=== PATIENT | female | born 1995 | race Two or more races ===

== ENCOUNTER 2018-12-28 15:30 | Emergency (ER) | payer MEDICAID, OTHER ==
[~2018-12-28] VITALS: Ht 157.5 cm; Wt 63.5 kg
[2018-12-28] MEDS ORDERED: SODIUM CHLORIDE 0.9% 1,000 ML IV ONE ×2 (15:37)
[2018-12-28 16:22] LABS: Salicylate < 1.7 mg/dL (2.8-20.0)
[2018-12-28 16:23] LABS: Acetaminophen < 2.0 ug/mL (10-30)
[2018-12-28 16:24] LABS: Albumin 3.6 g/dL (3.4-5.0); Potassium 3.5 mmol/L (3.5-5.1)
[2018-12-28 16:25] LABS: Basophils # (auto) 0 uL; Basophils % (auto) 0.5 % (0.0-2.0); Eosinophils # (auto) 0 uL; Eosinophils % (auto) 0.2 % (0.0-7.0); Hematocrit 41.1 % (36.0-46.0); Hemoglobin 13.4 g/dL (12.2-16.2); Lymphocytes % (auto) 18.9 % (10.0-50.0); Mean Corpuscular Hemoglobin 28.9 pg (28.0-32.0); Mean Corpuscular Hgb Conc. 32.7 g/dL (32.0-36.0); Mean Corpuscular Volume 88.3 fL (80.0-100.0); Monocytes # (auto) 0.8 uL; Monocytes % (auto) 7.4 % (0.0-12.0); Neutrophils # (auto) 7.7 uL; Nucleated Red Blood Cells % 0.1 %; Platelet Count (auto) 365 10^3/uL (140-450); Red Blood Cells 4.66 10^6/uL (4.0-5.20); Red Cell Distribution Width 16.1 % (11.8-14.3); White Blood Cell 10.5 10^3/uL (4.4-10.8)
[2018-12-28 16:26] LABS: BUN/Creatinine Ratio 10.5; Bilirubin, Total 0.5 mg/dL (0.2-1.0); Total Protein 7.2 g/dL (6.4-8.2)
[2018-12-28 19:04] LABS: Urine Bacteria NONE SEEN /hpf (None Seen); Urine Blood Negative /uL (Negative); Urine Mucus FEW (None Seen); Urine Specific Gravity 1.023 (1.001-1.035); Urine WBC 3 /hpf (0 - 5)
[2018-12-28 19:06] LABS: Amphetamine Screen, Urine NEGATIVE (NEGATIVE); Barbiturate Scree,Urine NEGATIVE (NEGATIVE); Benzodiazephine Screen, Urine NEGATIVE (NEGATIVE); Cannabinoid Screen, Urine NEGATIVE (NEGATIVE); Cocaine Screen, Urine NEGATIVE (NEGATIVE); Opiate Scree,Urine NEGATIVE (NEGATIVE); Phencyclidine Screen, Urine NEGATIVE (NEGATIVE)
[2018-12-28 20:11] VITALS: BP 131/71
== END 2018-12-28 21:18 | disposition left against medical advice (07) ==
LOC: EDBD 15:30 → ER 15:38
DX: F32.9 Major depressive disorder, single episode, unspecified (principal); Z53.29 Procedure and treatment not carried out because of patient's decision for other reasons
CPT/HCPCS: 36415; 80053; 80307; 80320; 80329; 81001; 82962; 84702; 85025; 93005; 96360; 99284; J7030

== ENCOUNTER 2025-01-26 21:57 | Inpatient (IN) | payer MEDICAID ==
[~2025-01-26] VITALS: Ht 157.5 cm; Wt 68.0 kg
[2025-01-26] MEDS: LORazepam 2MG/ML-1ML VIAL IV ONE (22:59)
[2025-01-26 23:06] LABS: Hematocrit 39.8 % (36.0-46.0); Hemoglobin 13.3 g/dL (12.2-16.2); Mean Corpuscular Hemoglobin 27.9 pg (28.0-32.0); Mean Corpuscular Volume 83.8 fL (80.0-100.0); Nucleated Red Blood Cells % 0.1 %
[2025-01-26 23:17] LABS: Anion Gap 11 (5-15); Carbon Dioxide 24 mmol/L (20-31); Potassium 3.6 mmol/L (3.5-5.1); Sodium 144 mmol/L (136-145)
[2025-01-26 23:18] LABS: Calcium 8.9 mg/dL (8.7-10.4)
[2025-01-26 23:23] LABS: BUN/Creatinine Ratio 14.1 (10.0-20.0); Blood Urea Nitrogen 9 mg/dL (9-23); Glucose 95 mg/dL (74-106)
[2025-01-26 23:34] LABS: Chloride 109 mmol/L (98-107)
[2025-01-27] VITALS (7 sets, daily range): BP systolic 85–105; BP diastolic 47–72; PULSE 80–96; RESP 15–21; TEMP 98.1–98.5; O2SAT 95–99
--- NOTE | 2025-01-27 00:30 | ED.PDOC ---
History of Present Illness HPI Comments 29-year-old female complaining of anxiety and shakiness, patient reports heavy drinker typically drinking two bottles of wine daily. States she has had a history of alcohol withdrawal. States last drink was earlier this morning. She feels as though she is going through withdrawals again. Patient states last week she was admitted to [facility] and [facility]. States she stayed for one week. Says one of the doctors [place] recently prescribed her Ativan 1 mg and [place] five. States she has been taking those for her anxiety her withdrawals and body pains. States she recently ran out three days ago so she started to drink again. Chief Complaint: Withdrawal Time Seen by MD: 22:21 Primary Care Provider: UNK Reviewed Notes: Nurses Notes Allergies: Coded Allergies: NO KNOWN ALLERGIES (Unverified , 12/28/18) Information Source: Patient Mode of Arrival: Ambulatory Past Medical History PAST MEDICAL HISTORY: Anxiety Past Medical History (Other): Alcohol dependency, chronic right shoulder pain Surgical History: Denies all surgeries HOOP ROLLS OPERATOR History: No Pertinent HOOP ROLLS OPERATOR History Family History Family History: Unknown Social History Smoker: Non-Smoker Alcohol: Denies ETOH Use Drugs: Denies Drug Use Constitutional: reports: chills, malaise; denies: diaphoresis, fatigue, fever, sweats, weakness, others EENTM: denies: blurred vision, double vision, ear bleeding, ear discharge, ear drainage, ear pain, ear ringing, eye pain, eye redness, hearing loss, mouth pain, mouth swelling, nasal discharge, nose bleeding, nose congestion, nose pain, photophobia, tearing, throat pain, throat swelling, voice changes, others Respiratory: denies: cough, hemoptysis, orthopnea, SOB at rest, shortness of breath, SOB with excertion, stridor, wheezing, others Cardiovascular: reports: dizzy spells, diaphoresis; denies: chest pain, Dyspnea on exertion, edema, irregular heart beat, left arm pain, lightheadedness, palpitations, PND, syncope, others Gastrointestinal: reports: nausea; denies: abdomen distended, abdominal pain, blood streaked bowels, constipated, diarrhea, dysphagia, difficulty swallowing, hematemesis, melena, poor appetite, poor fluid intake, rectal bleeding, rectal pain, vomiting, others Genitourinary: denies: abnormal vagina bleeding, burning, dyspareunia, dysuria, flank pain, frequency, hematuria, incontinence, pain, , vagina discharge, urgency, others Neurological: denies: dizziness, fainting, headache, left sided numbness, left sided weakness, numbness, paresthesia, pre-existing deficit, right sided numbness, right sided weakness, seizure, speech problems, tingling, tremors, weakness, others Musculoskeletal: denies: back pain, gout, joint pain, joint swelling, muscle pain, muscle stiffness, neck pain, others Integumetry: denies: bruises, change in color, change in hair/nails, dryness, laceration, lesions, lumps, rash, wounds, others Allergic/Immunocompromised: denies: Difficulty Healing, Frequent Infections, Hives, Itching, others Hematologic/Lymphatic: denies: anemia, blood clots, easy bleeding, easy bruising, swollen glands, others Physical Exam General Appearance: No Apparent Distress, Normal HEENT: Normal ENT Inspection, Pharynx Normal, TMs Normal Neck: Full Range of Motion, Non-Tender, Normal, Normal Inspection Respiratory: Chest Non-Tender, Lungs Clear, No Accessory Muscle Use, No Respiratory Distress, Normal Breath Sounds Cardiovascular: No Edema, No JVD, No Murmur, No Gallop, Normal Peripheral Pulses, Regular Rate/Rhythm Breast Exam: Deferred Gastrointestinal: No Organomegaly, Non Tender, No Pulsatile Mass, Normal Bowel Sounds, Soft Genitalia: Deferred Pelvic: Deferred Rectal: Deferred Extremities: No calf tenderness, Normal capillary refill, Normal inspection, Normal range of motion, Non-tender, No pedal edema Musculoskeletal : Apperance: Normal Neurologic: Alert, 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 Was a procedure done?: No Differential Dx Considerations may include: Alcohol withdrawal, delirium tremors, benzodiazepine withdrawal, X-Ray, Labs, Meds, VS Vital Signs Date Time Temp Pulse Resp B/P (MAP) Pulse Ox O2 Delivery O2 Flow Rate FiO2 01/26/25 23:00 Room Air* 0 21 01/26/25 23:00 98.7 127 16 102/54 (70) 98 98.7 01/26/25 22:17 98.7 127 16 102/54 (70) 98 98.7 Lab Test 01/26/25 22:55 Range/Units White Blood Count 8.0 4.4-10.8 10^3/uL Red Blood Count 4.76 4.0-5.20 10^6/uL Hemoglobin 13.3 12.2-16.2 g/dL Hematocrit 39.8 36.0-46.0 % Mean Corpuscular Volume 83.8 80.0-100.0 fL Mean Corpuscular Hemoglobin 27.9 L 28.0-32.0 pg Mean Corpuscular Hemoglobin Concent 33.3 32.0-36.0 g/dL Red Cell Distribution Width 17.6 H 11.8-14.3 % Platelet Count 373 140-450 10^3/uL Mean Platelet Volume 7.2 6.9-10.8 fL Neutrophils (%) (Auto) 58.8 37.0-80.0 % Lymphocytes (%) (Auto) 31.8 10.0-50.0 % Monocytes (%) (Auto) 8.7 0.0-12.0 % Eosinophils (%) (Auto) 0.2 0.0-7.0 % Basophils (%) (Auto) 0.5 0.0-2.0 % Neutrophils # (Auto) 4.7 1.6-8.6 10 ^3/uL Lymphocytes # (Auto) 2.5 0.4-5.4 10 ^3/uL Monocytes # (Auto) 0.7 0-1.3 10 ^3/uL Eosinophils # (Auto) 0 0-0.8 10 ^3/uL Basophils # (Auto) 0 0-0.2 10 ^3/uL Nucleated Red Blood Cells 0.1 % Sodium Level 144 136-145 mmol/L Potassium Level 3.6 3.5-5.1 mmol/L Chloride Level 109 H 98-107 mmol/L Carbon Dioxide Level 24 20-31 mmol/L Anion Gap 11 5-15 Blood Urea Nitrogen 9 9-23 mg/dL Creatinine 0.64 0.550-1.02 mg/dL Glomerular Filtration Rate Calc 123 >90 mL/min BUN/Creatinine Ratio 14.1 10.0-20.0 Serum Glucose 95 74-106 mg/dL Calcium Level 8.9 8.7-10.4 mg/dL Plasma/Serum Blood Alcohol 103.6 H <10 mg/dL Current Medications Medications (Trade) Dose Ordered Sig/Yanet Route Start Time Stop Time Status Last Admin Lorazepam (Ativan Inj) 1 mg ONCE ONCE IV 01/26/25 22:45 01/26/25 22:46 DC 01/26/25 22:59 X-Ray, Labs, Meds, VS Comment Patient reports prior history of seizures due to withdrawal and hallucinations Patient will be admitted for alcohol withdrawal Patient will be started on banana bag Given 1 mg Ativan Patient be given morphine four Zofran four for her body pain. Time of 1ST Reevaluation: 00:30 Reevaluation 1ST: Unchanged Patient Education/Counseling: Diagnosis, Treatment Family Education/Counseling: Diagnosis SEPSIS Sepsis Screen Date sepsis recognized/suspect: Jan 26, 2025 Time Sepsis recognized/suspect: 2216 Recent Procedure: No On Antibiotic Therapy: No Respiratory Rate >20: No Heart Rate >90: Yes (HR-127) Temp<36 C (96.8 F) or >38.3 C: No SBP <90 or MAP <65 mmHG: No New Acute Mental Status Change: No Is the patient on CPAP, BIPAP,: No Physician Orders Drug Screen (01/26/25 22:40) Urinalysis (01/26/25 22:40) Vital Signs Date Time Temp Pulse Resp B/P (MAP) Pulse Ox O2 Delivery O2 Flow Rate FiO2 01/26/25 23:00 Room Air* 0 21 01/26/25 23:00 98.7 127 16 102/54 (70) 98 98.7 01/26/25 22:17 98.7 127 16 102/54 (70) 98 98.7 Laboratory Tests Test 01/26/25 22:55 White Blood Count 8.0 10^3/uL (4.4-10.8) Medications Medications Dose Ordered Sig/Yanet Route Start Time Stop Time Status Last Admin Dose Admin Lorazepam 1 mg ONCE ONCE IV 01/26/25 22:45 01/26/25 22:46 DC 01/26/25 22:59 Departure 1 Departure Time of Disposition: 00:27 Impression: Primary Impression: Alcohol withdrawal syndrome Qualified Codes: F10.939 - Alcohol use, unspecified with withdrawal, unspecified Disposition: ADMITTED INPATIENT Condition: Stable Discharged With: Self Critical Care Note Critical Care Time?: No Stability Stability form required: No Heart Score Heart Score: Heart Score Response (Comments) Value History N/A 0 EKG N/A 0 Age N/A 0 Risk Factors N/A 0 Troponin N/A 0 Total 0 ANNA GARCIA [facility] Jan 27, 2025 00:30
[2025-01-27] MEDS: ONDANSETRON HCL 4 MG/2 ML VIAL IV ONE (01:07)
[2025-01-27] MEDS: MORPHINE SULFATE 4 MG/ML SYR/VIAL IV ONE (01:17)
[2025-01-27] MEDS ORDERED: NITROGLYCERIN 0.4 MG SL TAB SL PRN (02:30)
--- NOTE | 2025-01-27 02:57 | DVHHP2 ---
History of Present Illness History of Present Illness This is a 29-year-old female with past medical history of alcohol use disorder, GERD, right shoulder pain, pancreatitis, seizure due to alcohol withdrawal came to ER with a complaint of nausea, vomiting, feeling anxious, and shakiness. Patient drinks alcohol daily and last drink was around 8:00 p.m. after that patient thoughts she is going to be withdrawal and came to hospital. Patient also stated she was in [facility] last week due to alcohol withdrawal. Patient PCP referred her to psychiatrist and behavioral therapist but not followed up. Patient currently feeling anxious, mild headache but oriented to time place and person. She had also history of hospitalization in 2019 due to seizure related alcohol withdrawal. Patient lives with her grandmother and finish some college. Currently patient denies any agitation, paroxysmal sweating, visual hallucination. Past Medical History: Alcohol dependency, chronic right shoulder pain, GERD, pancreatitis, seizure due to alcohol withdrawal Surgical History: Denies all surgeries LEAN FACILITATOR History: No Pertinent LEAN FACILITATOR History Family/ personal History: Patient lives with her grandmother and finish some college. Smoker: Non-Smoker Medicine: None Allergy: No known allergy Review of Systems Constitutional: No: Fever, Chills, Sweats, Weakness, Malaise, Other Eyes: No: Pain, Vision change, Conjunctivae inflammation, Eyelid inflammation, Other, Redness ENT: No: Ear pain, Ear discharge, Nose pain, Nose discharge, Nose congestion, Mouth pain, Mouth swelling, Throat pain, Throat swelling, Other Respiratory: No: Cough, Dry, Shortness of breath, SOB with excertion, Wheezing, Hemoptysis, Pleuritic Pain, Sputum, Wheezing, Other Cardiovascular: No: Chest Pain, Palpitations, Orthopnea, Paroxysmal Noc. Dyspnea, Edema, Lt Headedness, Other Gastrointestinal: Nausea, Vomiting, Abdominal Pain Genitourinary: No Dysuria, No Frequency, No Incontinence, No Hematuria, No Retention, No Other Musculoskeletal: shoulder pain (Right shoulder pain); No: other, neck pain, arm pain, back pain, hand pain, leg pain, foot pain Skin: No: Rash, Lesions, Jaundice, Bruising, Other Neurological: No: Weakness, Numbness, Incoordination, Change in speech, Confusion, Seizures, Other Allergies: Coded Allergies: NO KNOWN ALLERGIES (Unverified , 12/28/18) Medications Current Medications Medications Dose Ordered Sig/Yanet Route Start Time Stop Time Status Last Admin Dose Admin Folic Acid 1 mg/ Multivitamins 10 ml/Magnesium Sulfate 8 meq/ Thiamine HCl 100 mg/Dextrose 1,013.2 ml @ 125.001 mls/hr DAILY@1800 INJ 01/27/25 18:00 Nitroglycerin 0.4 mg Q5MINP PRN SL 01/27/25 02:30 Exam Vital Signs Vital Signs Date Time Temp Pulse Resp B/P (MAP) Pulse Ox O2 Delivery O2 Flow Rate FiO2 01/27/25 01:17 108 16 109/86 01/26/25 23:00 Room Air* 0 21 01/26/25 23:00 98.7 98 98.7 General Appearance: Alert, Cooperative, mild distress, Other (Smell of alcohol) HEENT: Atraumatic, PERRLA, EOMI Respiratory: Clear to auscultation, Normal air movement Cardiovascular: Regular rate, Normal S1, Normal S2 Abdominal: Normal bowel sounds, Soft, Other (Abdomen Mild tender on deep palpation) Extremities: No cyanosis, No edema, Normal pulses, Other (Mild tremor present bilateral hands) Skin: No rashes, No breakdown Psych/Mental Status: Other (Looks anxious) Labs/Xrays Labs Test 01/26/25 22:55 Range/Units White Blood Count 8.0 4.4-10.8 10^3/uL Red Blood Count 4.76 4.0-5.20 10^6/uL Hemoglobin 13.3 12.2-16.2 g/dL Hematocrit 39.8 36.0-46.0 % Mean Corpuscular Volume 83.8 80.0-100.0 fL Mean Corpuscular Hemoglobin 27.9 L 28.0-32.0 pg Mean Corpuscular Hemoglobin Concent 33.3 32.0-36.0 g/dL Red Cell Distribution Width 17.6 H 11.8-14.3 % Platelet Count 373 140-450 10^3/uL Mean Platelet Volume 7.2 6.9-10.8 fL Neutrophils (%) (Auto) 58.8 37.0-80.0 % Lymphocytes (%) (Auto) 31.8 10.0-50.0 % Monocytes (%) (Auto) 8.7 0.0-12.0 % Eosinophils (%) (Auto) 0.2 0.0-7.0 % Basophils (%) (Auto) 0.5 0.0-2.0 % Neutrophils # (Auto) 4.7 1.6-8.6 10 ^3/uL Lymphocytes # (Auto) 2.5 0.4-5.4 10 ^3/uL Monocytes # (Auto) 0.7 0-1.3 10 ^3/uL Eosinophils # (Auto) 0 0-0.8 10 ^3/uL Basophils # (Auto) 0 0-0.2 10 ^3/uL Nucleated Red Blood Cells 0.1 % Sodium Level 144 136-145 mmol/L Potassium Level 3.6 3.5-5.1 mmol/L Chloride Level 109 H 98-107 mmol/L Carbon Dioxide Level 24 20-31 mmol/L Anion Gap 11 5-15 Blood Urea Nitrogen 9 9-23 mg/dL Creatinine 0.64 0.550-1.02 mg/dL Glomerular Filtration Rate Calc 123 >90 mL/min BUN/Creatinine Ratio 14.1 10.0-20.0 Serum Glucose 95 74-106 mg/dL Calcium Level 8.9 8.7-10.4 mg/dL Plasma/Serum Blood Alcohol 103.6 H <10 mg/dL Assessment/Plan Assessment/Plan # Acute alcohol withdrawal -Patient used to drink alcohol daily and came with sign symptom of alcohol withdrawal -smell of alcohol noted during admission. -CIWA score 10 -Blood alcohol level-103.6 -CONTINUE BANANA BAG -STARTED LIBRIUM 50 MG P.O. B1Y-6to day Librium 50 mg po q.12 2nd day Librium 25 mg po q.12 3rd day Librium 25 mg po q.a.m. 4th day. -Thiamine 100 mg p.o. daily - Folic acid 1 mg p.o. daily -Lorazepam 1 mg IV Q5 minutes prn for alcohol withdrawal -Ondansetron mg Q 4 H IV p.r.n. -Mg++ and Phosphorus level will follow. # Alcohol use disorder -patient drink alcohol daily -CAGE questionnaire: score is 3 considered clinical significant and indicate a potential alcohol use disorder . -H/O multiple hospitalization due to alcohol withdrawal # Anxiety -related to alcohol use disorders #GERD -continue famotidine 20 mg b.i.d. #Diet: clear liquid diet # DVT PROPHYLAXIS: Patient ambulating # GI prophylaxis: Famotidine 20 mg twice daily Goals of care discussion, get an than 25 minute. From code status Plan discussed with Dr. Taylor. Plan discussed with: Patient, Other (Nurse) My Orders Orders - PEGGY CASTILLO Procedure Category Date Status Time Admit ADMIT 01/27/25 Transmitted 02:28 Nitroglycerin PHA 01/27/25 In Process Sublingual (Ntrostat 02:30 Notify Md Of Changes JUANA 01/27/25 In Process From Base 02:28 Date of Service: Jan 27, 2025 Billing Provider: ASHLIE TAYLOR MD Common Visit Codes: [id number] INP/OBS CARE (HIGH) Secondary Visit Codes: [id number] CARE PLAN 30 MINUTES PEGGY CASTILLO Jan 27, 2025 02:57
[2025-01-27] MEDS: FOLIC ACID 1 MG in D5W 5% 50 ML INJ ONE ×2 (03:00→09:27)
[2025-01-27] MEDS ORDERED: LORazepam 2MG/ML-1ML VIAL IV PRN ×2 (03:00→03:30)
[2025-01-27] MEDS: D5W/SOD CHLO 0.9% 1,000 ML IV ONE (03:00)
[2025-01-27] MEDS ORDERED: FOLIC ACID 1 MG, MULTIPLE VITAMIN 10 ML, MAGNESIUM SULF SDV 50% 8 MEQ, THIAMINE INJ 100... INJ SCH ×4 (03:30→18:00)
[2025-01-27] MEDS ORDERED: BUPR-239 PO (04:38)
[2025-01-27] MEDS ORDERED: GABA-339 PO (04:38)
[2025-01-27] MEDS ORDERED: LORA-655 PO (04:38)
[2025-01-27] MEDS ORDERED: HYDR-4902 PO (04:38)
[2025-01-27] MEDS: LORazepam 2MG/ML-1ML VIAL IV STA (06:52)
[2025-01-27 09:25] LABS: Hematocrit 38.1 % (36.0-46.0); Hemoglobin 12.6 g/dL (12.2-16.2); Mean Corpuscular Hemoglobin 28.0 pg (28.0-32.0); Mean Corpuscular Volume 84.4 fL (80.0-100.0); Nucleated Red Blood Cells % 0.1 %
[2025-01-27 09:29] LABS: Alanine Aminotransferase 16 U/L (7-40); Albumin 4.3 g/dL (3.2-4.8); Alkaline Phosphatase 73 U/L (46-116); Anion Gap 10 (5-15); BUN/Creatinine Ratio 18.8 (10.0-20.0); Blood Urea Nitrogen 13 mg/dL (9-23); Calcium 9.3 mg/dL (8.7-10.4); Carbon Dioxide 23 mmol/L (20-31); Chloride 106 mmol/L (98-107); Potassium 3.6 mmol/L (3.5-5.1); Sodium 139 mmol/L (136-145); Total Protein 6.5 g/dL (5.7-8.2)
[2025-01-27 09:30] LABS: Bilirubin, Total 0.4 mg/dL (0.2-1.0); Glucose 111 mg/dL (74-106)
[2025-01-27] MEDS: FOLIC ACID 1 MG TAB PO SCH (09:34)
[2025-01-27] MEDS: THIAMINE HCL 100 MG TAB PO SCH (09:34)
[2025-01-27] MEDS: CYANOCOBALAMIN 500 MCG TAB PO SCH (09:34)
[2025-01-27] MEDS: LORazepam 0.5 MG TAB PO ONE (09:34)
[2025-01-27] MEDS: FAMOTIDINE 20 MG TAB PO SCH (09:34)
--- NOTE | 2025-01-27 09:37 | DVHPNRES ---
Progress Note Date Seen: Jan 27, 2025 Resident Creating Document: KWAN GONZALEZ RESIDENT Has the PT tested + for MRSA If YES, has PT been informed?: No Medical Necessity Reason Pt with a Central, PICC or Fol: No Subjective Review of Systems This is a 29-year-old female with past medical history of alcohol use disorder, GERD, right shoulder pain, pancreatitis, seizure due to alcohol withdrawal came to ER with a complaint of nausea, vomiting, feeling anxious, and shakiness. Patient drinks alcohol daily and last drink was around 8:00 p.m. after that patient thoughts she is going to be withdrawal and came to hospital. Patient also stated she was in [facility] last week due to alcohol withdrawal. Patient PCP referred her to psychiatrist and behavioral therapist but not followed up. Patient currently feeling anxious, mild headache but oriented to time place and person. She had also history of hospitalization in 2019 due to seizure related alcohol withdrawal. Patient lives with her grandmother and finish some college. Currently patient denies any agitation, paroxysmal sweating, visual hallucination. Patient seen at bedside. patient complains of visual hallucinations, tactile hallucinations, tremors, severe anxiety, sweats. She also complains of abdominal pain. The CIWA score is 20. She reports trying to contact psychiatrist and is interested to go to rehabilitation and to quit drinking alcohol. Objective vital signs Vital Sign Date Time Temp Pulse Resp B/P (MAP) Pulse Ox O2 Delivery O2 Flow Rate FiO2 01/27/25 09:00 98.3 92 15 104/57 (73) 99 98.3 01/27/25 07:48 Room Air* 0 21 Total Intake and Output 01/26/25 01/26/25 01/27/25 15:00 23:00 07:00 Intake Total 150 ml Balance 150 ml medications Current Medications Medications Dose Ordered Sig/Yanet Route Start Time Stop Time Status Last Admin Dose Admin Nitroglycerin 0.4 mg Q5MINP PRN SL 01/27/25 02:30 Cyanocobalamin 1,000 mcg DAILY PO 01/27/25 10:00 01/27/25 09:34 1,000 MCG Chlordiazepoxide HCl 50 mg Q8H PO 01/27/25 03:30 01/27/25 19:31 01/27/25 04:18 50 MG Chlordiazepoxide HCl 50 mg Q12HR PO 01/28/25 10:00 01/28/25 22:01 Chlordiazepoxide HCl 25 mg Q12HR PO 01/29/25 10:00 01/29/25 22:01 Chlordiazepoxide HCl 25 mg QAM PO 01/30/25 07:00 01/30/25 07:01 Lorazepam 1 mg Q5MINP PRN IV 01/27/25 03:30 Ondansetron HCl 4 mg Q4HPRN PRN IV 01/27/25 03:30 Famotidine 20 mg Q12HR PO 01/27/25 10:00 01/27/25 09:34 20 MG Folic Acid 1 mg DAILY PO 01/27/25 10:00 01/27/25 09:34 1 MG Thiamine HCl 100 mg DAILY PO 01/27/25 10:00 01/27/25 09:34 100 MG Examination General: Patient alert and oriented in person, place and time. Patient following commands. Appears Anxious. HEENT: Normocephalic, atraumatic, moist mucous membranes Respiratory/pulmonary: Clear lungs bilaterally, vesicular murmurs present in almost all lung dawn, no associated crackles or wheezes. Cardiovascular: Normal heart sounds S1 and S2 with no associated murmurs Abdomen: Abdomen nondistended, soft, there is pain to palpation in epigastric area. No Nausea or vomiting. Extremities: There is no peripheral edema present at the lower extremities. Peripheral Pulses: 3+ Radial (R). 3+ Radial (L). 3+ Dorsalis pedis (R). 3+ Dorsalis pedis(L) Skin: No rashes or pruritus, there is no sacral edema present at this time. Neurological: Intact cranial nerves with no focal neurologic deficits laboratory and microbiology Laboratory Tests 01/27/25 08:28 Test 01/27/25 08:28 Range/Units Serum Glucose 111 H 74-106 mg/dL Problem List/Assessment/Plan Problem List/Assessment/Plan # Acute alcoholic withdrawal #Alcohol Intoxication -patient used to drink daily 2 bottles of wine -Patient used to drink alcohol daily and came with sign symptom of alcohol withdrawal -CIWA score 20 -Blood alcohol level-103.6 -Patient got BANANA BAG -Stoped LIBRIUM 50 MG - Ativan 2 mg po q.2 -Thiamine 100 mg p.o. daily - Folic acid 1 mg p.o. daily -Ondansetron mg Q 4 H IV p.r.n. -Mg++ is 2.0 -Phosphorus is 3.7 # Alcohol use disorder -patient drink alcohol daily -CAGE questionnaire: score is 3 considered clinical significant and indicate a potential alcohol use disorder . -H/O multiple hospitalization due to alcohol withdrawal -consulted social service to provide resources for rehabilitation # Anxiety -related to alcohol use disorders #GERD -continue famotidine 20 mg b.i.d. Of care discussed with patient for 25 minutes: Full code Plan discussed with patient and nurse Plan discussed with Dr. Butt Plan discussed with: Patient Date of Service: Jan 27, 2025 Billing Provider: WESLEY BUTT MD Common Visit Codes: [id number] INP/OBS CARE(HIGH) KWAN GONZALEZ RESIDENT Jan 27, 2025 09:37 WESLEY BUTT MD Jan 28, 2025 16:51
[2025-01-27 09:53] LABS: Magnesium 2.0 mg/dL (1.6-2.6)
[2025-01-27] MEDS ORDERED: THIAMINE 100mg/ml INJ (200mg/2ml VIAL) IV SCH (10:00)
[2025-01-27] MEDS ORDERED: THIAMINE HCL 100 MG TAB PO SCH (10:00)
[2025-01-27 10:22] LABS: Lipase 32 U/L (12-53)
[2025-01-27] MEDS: LORazepam 2MG/ML-1ML VIAL IV SCH ×2 (13:31→15:05)
[2025-01-27] MEDS: ONDANSETRON HCL 4 MG/2 ML VIAL IV PRN (20:08)
[2025-01-27] MEDS: HYDROcodone-ACET 5/325MG TAB PO ONE (21:58)
[2025-01-28] MEDS: ACETAMINOPHEN 325 MG TAB PO PRN (00:28)
[2025-01-28] MEDS: SODIUM CHLORIDE 0.9% 500 ML IV ONE (00:28)
[2025-01-28 01:00] VITALS: BP 93/57; PULSE 71; RESP 18; TEMP 97.9; O2SAT 97
[2025-01-28] MEDS: MELATONIN 5 MG TAB PO ONE (02:53)
[2025-01-28 05:00] VITALS: BP_SYST 100; PULSE 78; RESP 17; TEMP 98; O2SAT 100
[2025-01-28 07:58] LABS: Anion Gap 10 (5-15); Carbon Dioxide 24 mmol/L (20-31); Chloride 105 mmol/L (98-107); Sodium 139 mmol/L (136-145)
[2025-01-28 07:59] LABS: Calcium 9.1 mg/dL (8.7-10.4)
[2025-01-28 08:00] VITALS: RESP 18; O2SAT 99
[2025-01-28 08:04] LABS: BUN/Creatinine Ratio 19.1 (10.0-20.0); Blood Urea Nitrogen 13 mg/dL (9-23); Glucose 92 mg/dL (74-106)
[2025-01-28 08:20] LABS: Potassium 3.4 mmol/L (3.5-5.1)
[2025-01-28 09:00] VITALS: BP 99/61; PULSE 76; RESP 14; TEMP 98.1; O2SAT 95
--- NOTE | 2025-01-28 10:04 | DVHPNRES ---
Progress Note Date Seen: Jan 28, 2025 Resident Creating Document: ZUHAIR CATALAN RESIDENT Has the PT tested + for MRSA If YES, has PT been informed?: No Medical Necessity Reason Pt with a Central, PICC or Fol: No Subjective Review of Systems Patient is a 29-year-old female with Objective vital signs Vital Sign Date Time Temp Pulse Resp B/P (MAP) Pulse Ox O2 Delivery O2 Flow Rate FiO2 01/28/25 09:00 98.1 76 14 99/61 (74) 95 98.1 01/28/25 08:00 Room Air* 0 21 Total Intake and Output 01/27/25 01/27/25 01/28/25 15:00 23:00 07:00 Intake Total 700 ml 300 ml Output Total 3 ml Balance 700 ml 297 ml medications Current Medications Medications Dose Ordered Sig/Yanet Route Start Time Stop Time Status Last Admin Dose Admin Cyanocobalamin 1,000 mcg DAILY PO 01/27/25 10:00 01/28/25 09:58 1,000 MCG Ondansetron HCl 4 mg Q4HPRN PRN IV 01/27/25 03:30 01/27/25 20:08 4 MG Famotidine 20 mg Q12HR PO 01/27/25 10:00 01/28/25 09:58 20 MG Folic Acid 1 mg DAILY PO 01/27/25 10:00 01/28/25 09:58 1 MG Thiamine HCl 100 mg DAILY PO 01/27/25 10:00 01/28/25 09:58 100 MG Lorazepam 1 mg Q2HR IV 01/27/25 14:45 01/28/25 09:59 1 MG Acetaminophen 650 mg Q6HP PRN PO 01/28/25 00:15 01/28/25 00:28 650 MG laboratory and microbiology Laboratory Tests 01/28/25 06:24 01/27/25 08:28 Test 01/28/25 06:24 Range/Units Serum Glucose 92 74-106 mg/dL ZUHAIR CATALAN RESIDENT Jan 28, 2025 10:03
[2025-01-28] MEDS: HYDROcodone-ACET 5/325MG TAB PO ONE (10:41)
[2025-01-28] MEDS: POTASSIUM EFFERVESENT TAB 25 MEQ PO ONE (10:41)
[2025-01-28] MEDS: LORazepam 2MG/ML-1ML VIAL IV SCH (10:45)
[2025-01-28] MEDS ORDERED: LORazepam 2MG/ML-1ML VIAL IV PRN (11:30)
[2025-01-28] MEDS: LORazepam 0.5 MG TAB PO SCH (12:16)
[2025-01-28 13:00] VITALS: BP 115/64; PULSE 89; RESP 14; TEMP 97.5; O2SAT 100
[2025-01-28] MEDS: GABAPENTIN 300 MG CAP PO SCH (13:38)
[2025-01-28] MEDS ORDERED: LORA2TAB89 PO ×2 (15:04→15:16)
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
== END 2025-01-28 16:00 | disposition left against medical advice (07) | DRG 816 ==
LOC: ER 21:57 → OVERFLOW 01-27 02:28 → EAST 01-27 04:09
PROVIDERS: ATTEND Nurse Practitioner Family
DX: T51.91XA Toxic effect of unspecified alcohol, accidental (unintentional), initial encounter (principal); G92.8 Other toxic encephalopathy; R25.1 Tremor, unspecified; Y92.009 Unspecified place in unspecified non-institutional (private) residence as the place of occurrence of the external cause; F10.229 Alcohol dependence with intoxication, unspecified; F10.239 Alcohol dependence with withdrawal, unspecified; K21.9 Gastro-esophageal reflux disease without esophagitis; F41.9 Anxiety disorder, unspecified; G89.29 Other chronic pain; M25.511 Pain in right shoulder; Z53.29 Procedure and treatment not carried out because of patient's decision for other reasons; Y90.5 Blood alcohol level of 100-119 mg/100 ml
CPT/HCPCS: 36415; 80048; 80053; 80320; 83690; 83735; 84100; 85025; 96374; 96375; G0378; J2405; J7060

== ENCOUNTER 2025-02-06 11:13 | Inpatient (IN) | payer MEDICAID ==
[~2025-02-06] VITALS: Ht 157.5 cm; Wt 70.5 kg
[~2025-02-06 11:13] MED LIST: BUPR-239 PO; GABA-339 PO; HYDR-4902 PO; LORA-655 PO; LORA2TAB89 PO
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
[2025-02-06] MEDS: LORazepam 2MG/ML-1ML VIAL IV ONE (11:57)
[2025-02-06] MEDS: PROCHLORPERAZINE EDISYLATE 5 MG/ML 2ML VIAL IV ONE (11:57)
[2025-02-06] MEDS: PANTOPRAZOLE 40 MG/10 ML VIAL INJ IV ONE (11:57)
[2025-02-06] MEDS: SODIUM CHLORIDE 0.9% 1,000 ML IV ONE (11:59)
[2025-02-06 12:10] LABS: Hematocrit 41.4 % (36.0-46.0); Hemoglobin 13.8 g/dL (12.2-16.2); Mean Corpuscular Hemoglobin 28.6 pg (28.0-32.0); Mean Corpuscular Volume 85.5 fL (80.0-100.0); Nucleated Red Blood Cells % 0.0 %
[2025-02-06 12:13] LABS: Chloride 104 mmol/L (98-107); Sodium 140 mmol/L (136-145)
[2025-02-06 12:14] LABS: Anion Gap 9 (5-15); Calcium 9.3 mg/dL (8.7-10.4); Carbon Dioxide 27 mmol/L (20-31); Potassium 3.3 mmol/L (3.5-5.1)
[2025-02-06 12:19] LABS: Glucose 96 mg/dL (74-106)
[2025-02-06 12:21] LABS: BUN/Creatinine Ratio 5.2 (10.0-20.0); Blood Urea Nitrogen < 5 mg/dL (9-23)
[2025-02-06 14:18] LABS: Amphetamine Screen, Urine Pos (NEGATIVE)
[2025-02-06 14:19] LABS: Barbiturate Scree,Urine Neg (NEGATIVE); Benzodiazephine Screen, Urine Pos (NEGATIVE); Cocaine Screen, Urine Neg (NEGATIVE)
[2025-02-06 14:20] LABS: Cannabinoid Screen, Urine Pos (NEGATIVE); Opiate Scree,Urine Neg (NEGATIVE); Phencyclidine Screen, Urine Neg (NEGATIVE)
[2025-02-06 14:29] LABS: Urine Protein, UAD 1+ (Negative)
[2025-02-06] MEDS: cefTRIAXone 1GM/50ML D5W 50 ML IV ONE (14:55)
[2025-02-06] MEDS: ACETAMINOPHEN 325 MG TAB PO ONE (15:22)
[2025-02-06 15:44] VITALS: PULSE 89; RESP 20; O2SAT 97
[2025-02-06] MEDS ORDERED: TEMAZEPAM 15 MG CAP PO PRN (18:45)
[2025-02-06] MEDS ORDERED: ONDANSETRON HCL 4 MG/2 ML VIAL IV PRN (18:45)
[2025-02-06 20:22] VITALS: BP 98/57; PULSE 70; RESP 13; TEMP 98.4; O2SAT 96
[2025-02-06 20:43] VITALS: BP 98/57; PULSE 70; TEMP 98.4; O2SAT 96
--- NOTE | 2025-02-06 21:29 | DVHHP2 ---
History of Present Illness Reason for Visit: Alcohol withdrawal History of Present Illness 29-year-old female presents for evaluation of alcohol withdrawal. Patient has been admitted on multiple occasions with similar symptoms and has left AMA. Today she reports she had her last drink yesterday at 3:00 p.m.. She states developing palpitations with cold sweats today she also feels nauseous. Denies any chest pain or shortness for breath. No other acute complaints reported. Past Medical History Alcohol abuse Past Surgical History Denies Family History Noncontributory Smoke: No ALCOHOL: heavy Drugs: Marijuana Review of Systems Review of Systems Review of systems are currently negative otherwise addressed in HPI. Allergies: Coded Allergies: NO KNOWN ALLERGIES (Unverified , 12/28/18) Medications Current Medications Medications Dose Ordered Sig/Yanet Route Start Time Stop Time Status Last Admin Dose Admin Chlordiazepoxide HCl 50 mg Q8H PO 02/06/25 18:45 02/07/25 10:46 Chlordiazepoxide HCl 50 mg Q12HR PO 02/07/25 10:00 02/07/25 22:01 Chlordiazepoxide HCl 25 mg Q12HR PO 02/08/25 10:00 02/08/25 22:01 Chlordiazepoxide HCl 25 mg QAM PO 02/09/25 07:00 02/09/25 07:01 Thiamine HCl 100 mg DAILY PO 02/07/25 10:00 Folic Acid 1 mg DAILY PO 02/07/25 10:00 Ceftriaxone Sodium 50 ml @ 100 mls/hr DAILY@09 IV 02/07/25 09:00 Pantoprazole Sodium 40 mg DAILY@0600 PO 02/07/25 06:00 Temazepam 15 mg QHSP PRN PO 02/06/25 18:45 Ondansetron HCl 4 mg Q4HP PRN IV 02/06/25 18:45 Exam Vital Signs Vital Signs Date Time Temp Pulse Resp B/P (MAP) Pulse Ox O2 Delivery O2 Flow Rate FiO2 02/06/25 20:43 98.4 70 98/57 (71) 96 98.4 02/06/25 20:22 13 02/06/25 15:44 Room Air* 0 21 Exam Gen: 29-year-old female in no apparent distress. Skin: Warm, dry, normal color and texture, no rash. HEENT: Normocephalic atraumatic, mucous membranes moist and pink. Neck: Cervical and supraclavicular nodes normal without enlargement, trachea is midline, thyroid gland is normal without masses. Pulmonary: Clear to auscultation and percussion bilaterally. Cardiac: Regular rate and rhythm. No murmur Abdomen: Soft, nontender, nondistended, bowel sounds present all 4 quadrants, no guarding, no rigidity, no organomegaly. Extremities: No cyanosis, clubbing, no edema Neuro: Cranial nerves II through XII grossly intact, normal affect and speech, no focal motor deficits. Labs/Xrays Labs Test 02/06/25 11:47 02/06/25 11:30 Range/Units White Blood Count 7.6 4.4-10.8 10^3/uL Red Blood Count 4.85 4.0-5.20 10^6/uL Hemoglobin 13.8 12.2-16.2 g/dL Hematocrit 41.4 36.0-46.0 % Mean Corpuscular Volume 85.5 80.0-100.0 fL Mean Corpuscular Hemoglobin 28.6 28.0-32.0 pg Mean Corpuscular Hemoglobin Concent 33.4 32.0-36.0 g/dL Red Cell Distribution Width 18.3 H 11.8-14.3 % Platelet Count 423 140-450 10^3/uL Mean Platelet Volume 7.2 6.9-10.8 fL Neutrophils (%) (Auto) 65.2 37.0-80.0 % Lymphocytes (%) (Auto) 26.0 10.0-50.0 % Monocytes (%) (Auto) 7.0 0.0-12.0 % Eosinophils (%) (Auto) 1.4 0.0-7.0 % Basophils (%) (Auto) 0.4 0.0-2.0 % Neutrophils # (Auto) 5.0 1.6-8.6 10 ^3/uL Lymphocytes # (Auto) 2.0 0.4-5.4 10 ^3/uL Monocytes # (Auto) 0.5 0-1.3 10 ^3/uL Eosinophils # (Auto) 0.1 0-0.8 10 ^3/uL Basophils # (Auto) 0 0-0.2 10 ^3/uL Nucleated Red Blood Cells 0.0 % Sodium Level 140 136-145 mmol/L Potassium Level 3.3 L 3.5-5.1 mmol/L Chloride Level 104 98-107 mmol/L Carbon Dioxide Level 27 20-31 mmol/L Anion Gap 9 5-15 Blood Urea Nitrogen < 5 L 9-23 mg/dL Creatinine 0.97 0.550-1.02 mg/dL Glomerular Filtration Rate Calc 81 >90 mL/min BUN/Creatinine Ratio 5.2 L 10.0-20.0 Serum Glucose 96 74-106 mg/dL Calcium Level 9.3 8.7-10.4 mg/dL Plasma/Serum Blood Alcohol < 3.0 <10 mg/dL Urine Color Yellow Yellow Urine Clarity Turbid H Clear Urine pH 6.0 5.0-9.0 Urine Specific [place] 1.025 1.001-1.035 Urine Protein 1+ H Negative Urine Ketones Negative Negative Urine Blood 2+ H Negative /uL Urine Nitrite Negative Negative Urine Bilirubin Negative Negative Urine Urobilinogen Normal Negative mg/dL Urine Leukocyte Esterase 3+ Negative /uL Urine RBC 29 0 - 4 /hpf Urine Microscopic WBC 238 H 0-5 /HPF Urine Squamous Epithelial Cells Many <5 /hpf Urine Bacteria Few H None Seen /hpf Urine Mucus Moderate None Seen Urine Glucose Normal Normal mg/dL Urine Test Negative Negative Urine Opiates Screen Neg NEGATIVE Urine Fentanyl Screen Neg NEGATIVE Urine Barbiturates Screen Neg NEGATIVE Urine Phencyclidine Screen Neg NEGATIVE Urine Amphetamines Screen Pos NEGATIVE Urine Benzodiazepines Screen Pos NEGATIVE Urine Cocaine Screen Neg NEGATIVE Urine Cannabinoids Screen Pos NEGATIVE SEPSIS Sepsis Screen Date sepsis recognized/suspect: Feb 06, 2025 Time Sepsis recognized/suspect: 1546 Recent Procedure: No On Antibiotic Therapy: No Respiratory Rate >20: No Heart Rate >90: No Temp<36 C (96.8 F) or >38.3 C: No SBP <90 or MAP <65 mmHG: No New Acute Mental Status Change: No Is the patient on CPAP, BIPAP,: No Physician Orders Chlordiazepoxide Hcl Capsule (Librium Ca (02/06/25 18:45) Chlordiazepoxide Hcl Capsule (Librium Ca (02/07/25 10:00) Chlordiazepoxide Hcl Capsule (Librium Ca (02/08/25 10:00) Chlordiazepoxide Hcl Capsule (Librium Ca (02/09/25 07:00) Thiamine Tab (02/07/25 10:00) Folic Acid Tablet (02/07/25 10:00) Ceftriaxone 1gm/50ml D5w (Rocephin) (02/07/25 09:00) Pantoprazole Tablet (Protonix Tablet) (02/07/25 06:00) Admit (02/06/25 18:32) Temazepam (Restoril) (02/06/25 18:45) Ondansetron Hcl (Zofran) (02/06/25 18:45) Condition: Stable (02/06/25 18:32) Bedrest With Bathroom Privileg (02/06/25 18:32) Regular Diet (02/07/25 Breakfast) Basic Metabolic Panel (02/07/25 04:00) * [employer] Utility Worker Consult (02/06/25 20:55) Mrsa Screen (02/06/25 21:11) Vital Signs Date Time Temp Pulse Resp B/P (MAP) Pulse Ox O2 Delivery O2 Flow Rate FiO2 02/06/25 20:43 98.4 70 98/57 (71) 96 98.4 02/06/25 20:22 98.4 70 13 98/57 (71) 96 98.4 02/06/25 18:54 98.1 93 20 98/53 (68) 99 98.1 02/06/25 15:44 98.7 89 20 103/58 (73) 97 98.7 02/06/25 15:44 89 20 97 Room Air* 0 21 Laboratory Tests Test 02/06/25 11:47 White Blood Count 7.6 10^3/uL (4.4-10.8) Medications Medications Dose Ordered Sig/Yanet Route Start Time Stop Time Status Last Admin Dose Admin Acetaminophen 650 mg ONCE ONCE PO 02/06/25 15:15 02/06/25 15:16 DC 02/06/25 15:22 650 MG Ceftriaxone Sodium 50 ml @ 100 mls/hr ONCE ONCE IV 02/06/25 14:45 02/06/25 15:14 DC 02/06/25 14:55 100 MLS/HR Lorazepam 1 mg ONCE ONCE IV 02/06/25 12:00 02/06/25 12:01 DC 02/06/25 11:57 1 MG Pantoprazole Sodium 40 mg ONCE ONCE IV 02/06/25 11:45 02/06/25 11:46 DC 02/06/25 11:57 40 MG Prochlorperazine Edisylate 10 mg ONCE ONCE IV 02/06/25 11:45 02/06/25 11:46 DC 02/06/25 11:57 10 MG Sodium Chloride 1,000 ml @ 1,000 mls/hr Q1H ONCE IV 02/06/25 11:45 02/06/25 12:44 DC 02/06/25 11:59 1,000 MLS/HR Assessment/Plan Assessment/Plan Assessment Alcohol withdrawal Urinary tract infection Plan Admit the patient to [facility] surge to the hospitalist Librium taper Thiamine/folic acid Rocephin Continue treatment per orders. Plan discussed with: Patient My Orders Orders - MACKENZIE SOFIA Procedure Category Date Status Time Chlordiazepoxide Hcl PHA 02/06/25 In Process Capsule (Librium Ca 18:45 Chlordiazepoxide Hcl PHA 02/07/25 In Process Capsule (Librium Ca 10:00 Chlordiazepoxide Hcl PHA 02/08/25 In Process Capsule (Librium Ca 10:00 Chlordiazepoxide Hcl PHA 02/09/25 In Process Capsule (Librium Ca 07:00 Thiamine Tab PHA 02/07/25 In Process 10:00 Folic Acid Tablet PHA 02/07/25 In Process 10:00 Ceftriaxone 1gm/50ml PHA 02/07/25 In Process D5w (Rocephin) 09:00 Pantoprazole Tablet PHA 02/07/25 In Process (Protonix Tablet) 06:00 Admit ADMIT 02/06/25 Transmitted 18:32 Temazepam (Restoril) PHA 02/06/25 In Process 18:45 Ondansetron Hcl PHA 02/06/25 In Process (Zofran) 18:45 Condition: Stable JUANA 02/06/25 In Process 18:32 Bedrest With Bathroom JUANA 02/06/25 In Process Privileg 18:32 Regular Diet DIET 02/07/25 Transmitted Breakfast Basic Metabolic Panel LAB 02/07/25 Verified 04:00 * [employer] CONS 02/06/25 Transmitted Consult 20:55 Mrsa Screen MELE 02/06/25 Uncollected 21:11 Date of Service: Feb 06, 2025 Billing Provider: MACKENZIE SOFIA Common Visit Codes: [id number] INP/OBS CARE (MOD) MACKENZIE SOFIA Feb 06, 2025 21:29
[2025-02-06 21:33] VITALS: PULSE 71; RESP 18; O2SAT 97
[2025-02-06 21:34] VITALS: BP 105/67; PULSE 71; RESP 18; TEMP 98.6; O2SAT 97
[2025-02-06] MEDS: THIAMINE HCL 100 MG TAB PO ONE (22:02)
[2025-02-06] MEDS: FOLIC ACID 1 MG TAB PO ONE (22:02)
[2025-02-07] VITALS (7 sets, daily range): BP systolic 97–121; BP diastolic 57–75; PULSE 77–93; RESP 14–18; TEMP 98.1–99.2; O2SAT 95–100
[2025-02-07] MEDS: HYDROcodone-ACET 5/325MG TAB PO ONE (04:31)
[2025-02-07] MEDS: PANTOPRAZOLE 40 MG TAB PO SCH (06:25)
[2025-02-07 07:33] LABS: Chloride 107 mmol/L (98-107); Sodium 142 mmol/L (136-145)
[2025-02-07 07:34] LABS: Anion Gap 9 (5-15); Calcium 8.9 mg/dL (8.7-10.4); Carbon Dioxide 26 mmol/L (20-31)
[2025-02-07 07:39] LABS: Glucose 92 mg/dL (74-106)
[2025-02-07 07:41] LABS: BUN/Creatinine Ratio 7.2 (10.0-20.0); Blood Urea Nitrogen < 5 mg/dL (9-23); Potassium 3.2 mmol/L (3.5-5.1)
[2025-02-07] MEDS: cefTRIAXone 1GM/50ML D5W 50 ML IV SCH (09:26)
[2025-02-07] MEDS: ACETAMINOPHEN 325 MG TAB PO PRN (09:26)
[2025-02-07] MEDS: FOLIC ACID 1 MG TAB PO SCH (09:26)
[2025-02-07] MEDS: THIAMINE HCL 100 MG TAB PO SCH (09:26)
[2025-02-07] MEDS ORDERED: THIAMINE HCL 100 MG TAB PO SCH (10:00)
[2025-02-07] MEDS ORDERED: FOLIC ACID 1 MG TAB PO SCH (10:00)
[2025-02-07] MEDS: LORazepam 0.5 MG TAB PO ONE (10:53)
--- NOTE | 2025-02-07 11:59 | DVHPN2 ---
Progress Note Date Seen: Feb 07, 2025 Medical Necessity Reason Pt with a Central, PICC or Fol: No Subjective Patient reports: No new complaints Review of Systems: HEENT:Normal, CVS:Normal, RESPIRATORY:Normal, GI:Normal, :Normal, MSK:Normal, NEURO:Normal Objective vital signs Vital Sign Date Time Temp Pulse Resp B/P (MAP) Pulse Ox O2 Delivery O2 Flow Rate FiO2 02/07/25 09:00 98.2 84 14 106/70 (82) 98 98.2 02/07/25 08:11 Room Air* 0 21 Total Intake and Output 02/06/25 02/06/25 02/07/25 15:00 23:00 07:00 Intake Total 1000 ml 50 ml 250 ml Balance 1000 ml 50 ml 250 ml medications Current Medications Medications Dose Ordered Sig/Yanet Route Start Time Stop Time Status Last Admin Dose Admin Chlordiazepoxide HCl 50 mg Q8H PO 02/06/25 18:45 02/07/25 14:31 02/07/25 06:25 50 MG Chlordiazepoxide HCl 50 mg Q12HR PO 02/07/25 10:00 02/07/25 22:01 Chlordiazepoxide HCl 25 mg Q12HR PO 02/08/25 10:00 02/08/25 22:01 Chlordiazepoxide HCl 25 mg QAM PO 02/09/25 07:00 02/09/25 07:01 Ceftriaxone Sodium 50 ml @ 100 mls/hr DAILY@09 IV 02/07/25 09:00 Pantoprazole Sodium 40 mg DAILY@0600 PO 02/07/25 06:00 02/07/25 06:25 40 MG Temazepam 15 mg QHSP PRN PO 02/06/25 18:45 Ondansetron HCl 4 mg Q4HP PRN IV 02/06/25 18:45 Thiamine HCl 100 mg DAILY PO 02/07/25 10:00 02/07/25 09:26 100 MG Folic Acid 1 mg DAILY PO 02/07/25 10:00 02/07/25 09:26 1 MG Acetaminophen 650 mg Q6HP PRN PO 02/07/25 08:45 02/07/25 09:26 650 MG Lorazepam 1 mg Q6HP PRN IV 02/07/25 10:45 Examination: GENERAL:Normal, HEENT:Normal, NECK:Normal, LUNGS:Normal, CVS:Normal, ABDOMEN:Normal, MSK:Normal, SKIN:Normal, NEURO:Normal, :Normal laboratory and microbiology Laboratory Tests 02/07/25 06:24 02/06/25 11:47 Test 02/07/25 06:24 Range/Units Serum Glucose 92 74-106 mg/dL Problem List/Assessment/Plan Problem List/Assessment/Plan #1 alcohol abuse/withdrawal: librium, folic acid, thiamine #2 uti/std: rocephin, doxy #3 amphetamine abuse #4 hypokalemia: replace Plan discussed with: Patient My Orders My Orders Orders - MACKENZIE DURAND MD Procedure Category Date Status Time Lorazepam 2mg/Ml Inj PHA 02/07/25 In Process (Ativan Inj) 10:45 Ceftriaxone W PHA 02/07/25 Verified Lidocaine (Rocephin W 12:00 Doxycycline Tablet PHA 02/07/25 Verified (Vibramycin Tablet) 22:00 Doxycycline Tablet PHA 02/07/25 Verified (Vibramycin Tablet) 12:00 Urine Bacterial MELE 02/07/25 Verified Culture 11:48 Hydrocodone-Acet PHA 02/07/25 Verified 5/325mg Tab ([place] 12:00 Potassium Er Tablet PHA 02/07/25 Verified (Klor-Con Tablet) 12:00 Comprehensive LAB 02/08/25 Verified Metabolic Panel 06:00 Acute Hepatitis Panel LAB 02/07/25 Verified 11:48 Hiv 1&2 Antibody LAB 02/08/25 Verified 06:00 Chlamydia/Gc LAB 02/08/25 Verified Amplification 06:00 Date of Service: Feb 07, 2025 Billing Provider: MACKENZIE DURAND MD Common Visit Codes: [id number] INP/OBS CARE(HIGH) MACKENZIE UDRAND MD Feb 07, 2025 11:58
[2025-02-07] MEDS: POTASSIUM CHL 20 Meq TABLET PO ONE (12:25)
[2025-02-07] MEDS: HYDROcodone-ACET 5/325MG TAB PO PRN (12:25)
[2025-02-07] MEDS: DOXYCYCLINE 100 MG TAB/CAP PO ONE (12:25)
[2025-02-07] MEDS: LORazepam 2MG/ML-1ML VIAL IV PRN (14:31)
[2025-02-07] MEDS: cefTRIAXone W LIDOCAINE 500 MG IM IM ONE (14:35)
[2025-02-07] MEDS: DOXYCYCLINE 100 MG TAB/CAP PO SCH (22:14)
[2025-02-08 01:00] VITALS: BP 98/64; PULSE 84; RESP 16; TEMP 98.7; O2SAT 98
[2025-02-08 05:00] VITALS: BP 94/62; PULSE 83; RESP 18; TEMP 99; O2SAT 100
[2025-02-08 07:00] LABS: Albumin 4.2 g/dL (3.2-4.8); Alkaline Phosphatase 90 U/L (46-116); Anion Gap 10 (5-15); BUN/Creatinine Ratio 10.1 (10.0-20.0); Bilirubin, Total 0.3 mg/dL (0.2-1.0); Carbon Dioxide 25 mmol/L (20-31); Chloride 104 mmol/L (98-107); Glucose 93 mg/dL (74-106); Sodium 139 mmol/L (136-145); Total Protein 6.5 g/dL (5.7-8.2)
[2025-02-08 07:01] LABS: Alanine Aminotransferase < 9 U/L (7-40); Blood Urea Nitrogen 7 mg/dL (9-23); Calcium 8.6 mg/dL (8.7-10.4); Potassium 3.4 mmol/L (3.5-5.1)
[2025-02-08 08:00] VITALS: PULSE 91; RESP 23; O2SAT 100
[2025-02-08 08:46] VITALS: BP 106/62; PULSE 91; RESP 23; TEMP 98.1; O2SAT 100
[2025-02-08 10:02] LABS: Hepatitis B Surface Antigen Negative (Negative)
[2025-02-08 10:26] LABS: Hepatitis C Antibody Negative (Negative)
--- NOTE | 2025-02-08 11:36 | DVHDS2 ---
Discharge Summary Date of Admission Feb 06, 2025 at 18:32 Date of Discharge: Feb 08, 2025 Labs/Diagnostic Data: Laboratory Results Test 02/08/25 05:38 02/07/25 06:24 02/06/25 11:47 02/06/25 11:30 Sodium Level 139 mmol/L (136-145) Potassium Level 3.4 mmol/L (3.5-5.1) Chloride Level 104 mmol/L (98-107) Carbon Dioxide Level 25 mmol/L (20-31) Anion Gap 10 (5-15) Blood Urea Nitrogen 7 mg/dL (9-23) Creatinine 0.69 mg/dL (0.550-1.02) Glomerular Filtration Rate Calc 120 mL/min (>90) BUN/Creatinine Ratio 10.1 (10.0-20.0) Serum Glucose 93 mg/dL (74-106) Calcium Level 8.6 mg/dL (8.7-10.4) Total Bilirubin 0.3 mg/dL (0.2-1.0) Aspartate Amino Transferase (AST) 19 U/L (13-40) Alanine Aminotransferase (ALT) < 9 U/L (7-40) Alkaline Phosphatase 90 U/L (46-116) Total Protein 6.5 g/dL (5.7-8.2) Albumin 4.2 g/dL (3.2-4.8) HIV (1&2) Antibody Negative (Negative) Hepatitis A IgM Antibody Negative Hepatitis B Surface Antigen Negative (Negative) Hepatitis B Core IgM Antibody Negative (Negative) Hepatitis C Antibody Negative (Negative) White Blood Count 7.6 10^3/uL (4.4-10.8) Red Blood Count 4.85 10^6/uL (4.0-5.20) Hemoglobin 13.8 g/dL (12.2-16.2) Hematocrit 41.4 % (36.0-46.0) Mean Corpuscular Volume 85.5 fL (80.0-100.0) Mean Corpuscular Hemoglobin 28.6 pg (28.0-32.0) Mean Corpuscular Hemoglobin Concent 33.4 g/dL (32.0-36.0) Red Cell Distribution Width 18.3 % (11.8-14.3) Platelet Count 423 10^3/uL (140-450) Mean Platelet Volume 7.2 fL (6.9-10.8) Neutrophils (%) (Auto) 65.2 % (37.0-80.0) Lymphocytes (%) (Auto) 26.0 % (10.0-50.0) Monocytes (%) (Auto) 7.0 % (0.0-12.0) Eosinophils (%) (Auto) 1.4 % (0.0-7.0) Basophils (%) (Auto) 0.4 % (0.0-2.0) Neutrophils # (Auto) 5.0 10 ^3/uL (1.6-8.6) Lymphocytes # (Auto) 2.0 10 ^3/uL (0.4-5.4) Monocytes # (Auto) 0.5 10 ^3/uL (0-1.3) Eosinophils # (Auto) 0.1 10 ^3/uL (0-0.8) Basophils # (Auto) 0 10 ^3/uL (0-0.2) Nucleated Red Blood Cells 0.0 % Plasma/Serum Blood Alcohol < 3.0 mg/dL (<10) Urine Color Yellow (Yellow) Urine Clarity Turbid (Clear) Urine pH 6.0 (5.0-9.0) Urine Specific [place] 1.025 (1.001-1.035) Urine Protein 1+ (Negative) Urine Ketones Negative (Negative) Urine Blood 2+ /uL (Negative) Urine Nitrite Negative (Negative) Urine Bilirubin Negative (Negative) Urine Urobilinogen Normal mg/dL (Negative) Urine Leukocyte Esterase 3+ /uL (Negative) Urine RBC 29 /hpf (0 - 4) Urine Microscopic WBC 238 /HPF (0-5) Urine Squamous Epithelial Cells Many /hpf (<5) Urine Bacteria Few /hpf (None Seen) Urine Mucus Moderate (None Seen) Urine Glucose Normal mg/dL (Normal) Urine Test Negative (Negative) Urine Opiates Screen Neg (NEGATIVE) Urine Fentanyl Screen Neg (NEGATIVE) Urine Barbiturates Screen Neg (NEGATIVE) Urine Phencyclidine Screen Neg (NEGATIVE) Urine Amphetamines Screen Pos (NEGATIVE) Urine Benzodiazepines Screen Pos (NEGATIVE) Urine Cocaine Screen Neg (NEGATIVE) Urine Cannabinoids Screen Pos (NEGATIVE) Other Laboratory Tests 02/08/25 05:38 02/06/25 11:47 Brief Hx & Hospital Course: see dictated note Condition at Discharge: Good Final Diagnosis/Problems List alcohol abuse Discharge Disposition: Home Discharge Instruct/Medications Diet: Regular Activity: No Restrictions, As Tolerated Follow Up/Referral: fu with pcp/psych this week Medications: script to pharmacy Scheduled Bupropion Hcl (Bupropion Hcl Sr), 1 TAB PO DAILY, (Reported) Gabapentin (Gabapentin), 1 TAB PO TID, (Reported) Hydrocodone-Acetaminophen (Hydrocodone Bitartrate/AC 5-325 mg), 1 TAB PO BID, (Reported) Lorazepam (Ativan), 1 TAB PO UD Discontinued Medications Lorazepam (Ativan), 1 TAB PO TID, (Reported) Discharge Statement: "Patient was advised to return to the ER or call 911 if any headaches, dizziness, shortness of breath, chest pain, abdominal pain, bleeding, fevers, or worsening of medical condition. Patient was counseled about treatment plan, medications, possible side effects, patientverbalized understanding. All questions were answered to the best of my ability. This discharge took greater then 30 minutes in planning, reviewing documentation, counseling the patient, and discussing with other team members." ASSESSMENT ASSESSMENT Assessment alcohol abuse Date of Service: Feb 08, 2025 Billing Provider: MACKENZIE DURAND MD Common Visit Codes: 89387-FNR/OBS DISCH DAY >30min MACKENZIE DURAND MD Feb 08, 2025 11:36
[2025-02-08] MEDS ORDERED: DOXY-286 PO (11:38)
[2025-02-08] MEDS ORDERED: HYDR1TAB97 PO (11:38)
[2025-02-08] MEDS ORDERED: LORA-1121 PO (11:38)
[2025-02-08] MEDS ORDERED: MULT-351 PO (11:42)
--- NOTE | 2025-02-08 11:47 | DVHDS ---
DATE OF DISCHARGE: 02/08/2025 The patient is a 29-year-old lady who was admitted from alcohol withdrawal and cold sweats. The patient has history of alcohol abuse. HOSPITAL COURSE: The patient's tox screen was positive for cannabis as well as amphetamines. The patient's HIV and hepatitis panel were negative. The patient was hypokalemic and that was corrected. The patient had evidence of UTI and was treated with antibiotics. The patient stated that she had vaginal discharge with burning and she was treated for possible gonorrhea and chlamydia infection. The patient has a followup with Psychiatry this Thursday in [place]. She will now be discharged to follow up with her primary as well as Psychiatry. She will be discharged with Ativan p.r.n., [place] p.r.n. as well as doxycycline 100 mg p.o. b.i.d. for five days. The patient will be discharged on M.V.I. one tablet daily. FINAL DIAGNOSES: Alcohol abuse/withdrawal. UTI with questionable STD. Amphetamine abuse. Hypokalemia. Time spent in discharge planning and review of plan with the patient and nursing was 38 minutes. MD PEDRO Reddy/LIA TID: [id number] RECEIPT: [id number]
[2025-02-08 12:53] VITALS: BP 92/60; PULSE 84; RESP 16; TEMP 98.2; O2SAT 99
[2025-02-08] MEDS: POTASSIUM CHL 20 Meq TABLET PO ONE (12:56)
== END 2025-02-08 16:00 | disposition home or self-care (01) | DRG 775 ==
LOC: ER 11:13 → OVERFLOW 18:32 → WEST WING 21:33
PROVIDERS: ADMIT Internal Medicine; ATTEND Internal Medicine
DX: F10.231 Alcohol dependence with withdrawal delirium (principal); A54.9 Gonococcal infection, unspecified; N30.01 Acute cystitis with hematuria; E87.6 Hypokalemia; A74.9 Chlamydial infection, unspecified; N89.8 Other specified noninflammatory disorders of vagina; F41.9 Anxiety disorder, unspecified; F15.10 Other stimulant abuse, uncomplicated; A64 Unspecified sexually transmitted disease; F17.200 Nicotine dependence, unspecified, uncomplicated; Y90.0 Blood alcohol level of less than 20 mg/100 ml; Z79.899 Other long term (current) drug therapy
CPT/HCPCS: 36415; 80048; 80053; 80074; 80307; 80320; 81001; 81025; 85025; 86703; 87081; 87086; 96365; 96375; G0378; J0696; J2470

== ENCOUNTER 2025-02-19 04:18 | Emergency (ER) | payer MEDICAID ==
[~2025-02-19] VITALS: Ht 157.5 cm; Wt 68.2 kg
[~2025-02-19 04:18] MED LIST changes: +DOXY-286 PO; +HYDR1TAB97 PO; +LORA-1121 PO; -LORA-655 PO; +MULT-351 PO
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
[2025-02-19] MEDS: FAMOTIDINE 20 MG TAB PO ONE (05:12)
[2025-02-19] MEDS: MAALOX PLUS or MAALOX 30 ML PO ONE (05:12)
[2025-02-19] MEDS: LORazepam 0.5 MG TAB PO ONE (05:12)
[2025-02-19 05:15] VITALS: BP 100/77; PULSE 109; RESP 19; TEMP 98.5; O2SAT 98
[2025-02-19 05:54] LABS: Hematocrit 44.6 % (36.0-46.0); Hemoglobin 14.3 g/dL (12.2-16.2); Mean Corpuscular Hemoglobin 29.0 pg (28.0-32.0); Mean Corpuscular Volume 90.4 fL (80.0-100.0); Nucleated Red Blood Cells % 0.2 %
[2025-02-19 06:19] LABS: Alanine Aminotransferase 14 U/L (7-40); Albumin 4.8 g/dL (3.2-4.8); Alkaline Phosphatase 74 U/L (46-116); Anion Gap 14 (5-15); BUN/Creatinine Ratio 8.6 (10.0-20.0); Bilirubin, Total 0.7 mg/dL (0.2-1.0); Calcium 9.1 mg/dL (8.7-10.4); Chloride 103 mmol/L (98-107); Glucose 85 mg/dL (74-106); Lipase 31 U/L (12-53); Potassium 3.6 mmol/L (3.5-5.1); Sodium 137 mmol/L (136-145); Total Protein 7.2 g/dL (5.7-8.2)
[2025-02-19 06:23] LABS: Blood Urea Nitrogen 6 mg/dL (9-23); Carbon Dioxide 20 mmol/L (20-31)
[2025-02-19] MEDS ORDERED: HYDR-3682 PO (07:41)
[2025-02-19 07:52] LABS: Urine Protein, UAD Negative (Negative)
== END 2025-02-19 06:28 | disposition home or self-care (01) ==
LOC: ER 04:18
DX: F43.22 Adjustment disorder with anxiety (principal); F12.90 Cannabis use, unspecified, uncomplicated; F10.90 Alcohol use, unspecified, uncomplicated; F32.A Depression, unspecified; F17.200 Nicotine dependence, unspecified, uncomplicated; F41.9 Anxiety disorder, unspecified; Y90.9 Presence of alcohol in blood, level not specified
CPT/HCPCS: 36415; 80053; 81001; 81025; 83690; 85025

== ENCOUNTER 2025-02-19 06:30 | Emergency (ER) | payer MEDICAID ==
[~2025-02-19] VITALS: Ht 157.5 cm; Wt 68.0 kg
[2025-02-19] MEDS ORDERED: HYDR-3682 PO (07:41)
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
[2025-02-19 07:47] VITALS: BP 102/66; PULSE 112; RESP 16; TEMP 98; O2SAT 98
== END 2025-02-19 07:49 | disposition home or self-care (01) ==
LOC: ER 06:30
DX: F43.22 Adjustment disorder with anxiety (principal); F32.A Depression, unspecified